=== PATIENT | male | born 1970 | race Caucasian/White ===

== ENCOUNTER 2019-09-03 21:53 | Emergency (ER) | payer MEDICAID ==
[~2019-09-03] VITALS: Ht 188 cm; Wt 113.6 kg
[2019-09-03 21:55] VITALS: BP 187/99
[2019-09-03] MEDS ORDERED: SULF1TAB49 PO (22:52)
[2019-09-03] MEDS ORDERED: MUPI22OI30 TOP (22:52)
== END 2019-09-03 23:16 | disposition home or self-care (01) ==
LOC: ER 21:54
DX: E11.622 Type 2 diabetes mellitus with other skin ulcer (principal); L97.919 Non-pressure chronic ulcer of unspecified part of right lower leg with unspecified severity; L03.115 Cellulitis of right lower limb; I10 Essential (primary) hypertension; R60.0 Localized edema; Z79.899 Other long term (current) drug therapy
CPT/HCPCS: 82948; 99283

== ENCOUNTER 2020-01-12 11:41 | Emergency (ER) | payer MEDICAID ==
[~2020-01-12] VITALS: Ht 188 cm; Wt 116.3 kg
[2020-01-12 11:56] VITALS: BP 173/118
[2020-01-12] MEDS ORDERED: SULF1TAB49 PO (12:30)
== END 2020-01-12 12:43 | disposition home or self-care (01) ==
LOC: ER 11:42
DX: S80.821A Blister (nonthermal), right lower leg, initial encounter (principal); L03.115 Cellulitis of right lower limb; I10 Essential (primary) hypertension; Z79.2 Long term (current) use of antibiotics; X58.XXXA Exposure to other specified factors, initial encounter; Y93.89 Activity, other specified; Y92.89 Other specified places as the place of occurrence of the external cause; Y99.8 Other external cause status
CPT/HCPCS: 99283

== ENCOUNTER 2020-04-14 18:22 | Emergency (ER) | payer MEDICAID ==
[~2020-04-14] VITALS: Ht 188 cm; Wt 115.9 kg
[2020-04-14 18:40] VITALS: BP 183/121
[2020-04-14] MEDS ORDERED: SULF1TAB49 PO (19:07)
[2020-04-14] MEDS ORDERED: BACI1PAC7 TP (19:07)
== END 2020-04-14 19:22 | disposition home or self-care (01) ==
LOC: ER 18:29
DX: S80.811A Abrasion, right lower leg, initial encounter (principal); L03.115 Cellulitis of right lower limb; I10 Essential (primary) hypertension; Z79.2 Long term (current) use of antibiotics; W45.8XXA Other foreign body or object entering through skin, initial encounter; Y93.89 Activity, other specified; Y92.89 Other specified places as the place of occurrence of the external cause; Y99.8 Other external cause status
CPT/HCPCS: 99283

== ENCOUNTER 2022-10-24 20:05 | Emergency (ER) | payer MEDICAID ==
[~2022-10-24] VITALS: Ht 188 cm; Wt 113.6 kg
[2022-10-24 20:14] VITALS: BP 176/99
--- NOTE | 2022-10-24 23:28 | NUR ---
provided pt ice pack to place on top of foot and educated pt to elivate it.
[2022-10-24] MEDS ORDERED: IBUP-1984 PO (23:58)
== END 2022-10-25 00:19 | disposition home or self-care (01) ==
LOC: ER 20:06
DX: S90.32XA Contusion of left foot, initial encounter (principal); R60.9 Edema, unspecified; M79.672 Pain in left foot; M25.572 Pain in left ankle and joints of left foot; I10 Essential (primary) hypertension; M10.9 Gout, unspecified; Z79.899 Other long term (current) drug therapy; W19.XXXA Unspecified fall, initial encounter; Y93.89 Activity, other specified; Y92.89 Other specified places as the place of occurrence of the external cause; Y99.8 Other external cause status
CPT/HCPCS: 73630; 99283